=== PATIENT | male | born 1950 | race African-American/Black ===

== ENCOUNTER 2017-10-09 15:08 | Inpatient (IN) | payer MEDICARE, OTHER ==
[~2017-10-09] VITALS: Ht 188 cm; Wt 90.3 kg
[2017-10-09] MEDS ORDERED: ONDANSETRON 4 MG/2 ML VIAL IV PRN ×2 (16:00→18:15)
[2017-10-09] MEDS ORDERED: Z GUARD REMEDY PASTE 57 GM TUBE TOP PRN ×2 (16:00→18:15)
[2017-10-09] MEDS ORDERED: ACETAMINOPHEN 325 MG TABLET PO PRN ×2 (16:00→18:15)
[2017-10-09] MEDS ORDERED: MAGNESIUM HYDROXIDE 30 ML LIQUID UDC PO PRN ×2 (16:00→18:15)
[2017-10-09] MEDS ORDERED: ATOR10TA PO (16:02)
[2017-10-09] MEDS ORDERED: LEVE500T20 PO (16:08)
[2017-10-09] MEDS ORDERED: DABI150C PO (16:08)
[2017-10-09] MEDS ORDERED: CLON0.1T PO (16:08)
[2017-10-09] MEDS ORDERED: ENTA200T3 PO (16:08)
[2017-10-09] MEDS ORDERED: CARB1TAB24 PO (16:08)
[2017-10-09] MEDS ORDERED: PANT40TA2 PO (16:08)
--- NOTE | 2017-10-09 17:58 | NUR ---
Patient [facility] at 1440 [facility], 120/76, 97% on room air, 18 respirations, 59 pulse, 97.9 temperature, no complaints of [place] at this time, no signs of distress noted, call light placed in reach and bed locked and in lowest position, x 2 bed rails, bed alarm placed, alert and oriented to person/place/time, incontinent of bladder, brief changed at this time, no skin issues noted,MRSA swab done
[2017-10-09] MEDS ORDERED: IV NS 1000 ML 1,000 ML IV PRN (18:09)
[2017-10-09] MEDS ORDERED: ZOLPIDEM 5 MG TABLET PO PRN (18:15)
[2017-10-09] MEDS ORDERED: HYDROCODONE/APAP 5-325MG TABLET PO PRN (18:15)
[2017-10-09] MEDS ORDERED: CLONIDINE HCL 0.1 MG TABLET PO PRN (18:30)
[2017-10-09 19:33] VITALS: BP 144/83
[2017-10-09] MEDS: ENTACAPONE 200 MG TABLET PO SCH (20:39)
[2017-10-09] MEDS: DOCUSATE SODIUM 100 MG CAPSULE PO SCH (20:40)
[2017-10-09] MEDS: CARBIDOPA/LEVODOPA 25-250MG TABLET PO SCH (20:40)
[2017-10-09] MEDS: ATORVASTATIN 10 MG TABLET PO SCH (20:40)
[2017-10-09] MEDS ORDERED: DABIGATRAN ETEXILATE MESYLATE 150 MG CAPSULE PO SCH (21:00)
[2017-10-10] MEDS: CARBIDOPA/LEVODOPA 25-250MG TABLET PO SCH ×5 (05:26→20:27)
[2017-10-10] MEDS: ENTACAPONE 200 MG TABLET PO SCH ×5 (05:26→20:27)
[2017-10-10 05:27] VITALS: BP 149/74
--- NOTE | 2017-10-10 05:34 | NUR ---
pt slept well during the shift . No signs of distress . Pt had a void of 2 , and changed diaper . Pt has left leg severe weakness and a foot pump on left foot . VSS and pt has no c/o of pain . Pt in semi Fowlers position in bed . Bed in low position , wheels locked , side rails up , and bed alarm is on. Pt has call light near him at all times .
[2017-10-10 07:15] LABS: BASOPHILS % (AUTO) 0.4 % (0.0-2.0); EOSINOPHILS # (AUTO) 0.1 K/uL (0.0-0.7); EOSINOPHILS % (AUTO) 1.4 % (0.0-7.0); HEMATOCRIT 47.2 % (36.7-47.1); HEMOGLOBIN 15.8 g/dL (12.5-16.3); LYMPHOCYTES # (AUTO) 1.1 K/uL (20.0-40.0); LYMPHOCYTES % (AUTO) 18.1 % (20.5-51.5); MEAN CORPUSCULAR HGB CONC 33 g/dL (32.5-36.3); MEAN CORPUSCULAR VOLUME 95.8 fL (73.0-96.2); MONOCYTES # (AUTO) 0.3 K/uL (2.0-10.0); MONOCYTES % (AUTO) 5.8 % (0.0-11.0); NEUTROPHILS # (AUTO) 4.4 K/uL (1.8-8.9); NEUTROPHILS % (AUTO) 74.3 % (38.5-71.5); PLATELET COUNT (AUTO) 194 K/uL (152-348); RED BLOOD CELL COUNT(AUTO) 4.93 MIL/uL (4.06-5.63)
[2017-10-10 07:29] LABS: BILIRUBIN,DIRECT 0.1 mg/dL (0.0-0.2); BILIRUBIN,TOTAL 0.7 mg/dL (0.2-1.0); MAGNESIUM 2.1 mg/dL (1.8-2.4); PHOSPHOROUS 3.4 mg/dL (2.5-4.9); POTASSIUM 4.1 mmol/L (3.5-5.1); TOTAL PROTEIN, SERUM 7.9 g/dL (6.4-8.2)
[2017-10-10 07:38] LABS: THYROID STIMULATING HORMONE 1.605 mIU/mL (0.358-3.740)
--- NOTE | 2017-10-10 07:46 | NUR ---
Patient noted resting in bed at this time, IV place in right forearm/ 22 gauge, normal saline infusing at 75 mL/hr, no complaints of pain at this time, no signs of distress noted, call light in reach, bed locked and in lowest position, x [address], all needs met at this time
[2017-10-10 08:00] VITALS: BP 116/68
[2017-10-10] MEDS: PANTOPRAZOLE SODIUM 40 MG TABLET.DR PO SCH (08:50)
[2017-10-10] MEDS: LEVETIRACETAM 500 MG TABLET PO SCH ×2 (08:50→20:26)
[2017-10-10] MEDS ORDERED: DABIGATRAN ETEXILATE MESYLATE 150 MG CAPSULE PO SCH (09:00)
[2017-10-10] MEDS ORDERED: IV NS 1000 ML 1,000 ML IV PRN (12:47)
[2017-10-10 16:00] VITALS: BP 130/71
[2017-10-10] MEDS: RIVAROXABAN 10 MG TABLET PO SCH (17:27)
[2017-10-10 19:41] VITALS: BP 109/56
[2017-10-10] MEDS: ATORVASTATIN 10 MG TABLET PO SCH (20:27)
[2017-10-10] MEDS: DOCUSATE SODIUM 100 MG CAPSULE PO SCH (20:33)
--- NOTE | 2017-10-10 21:00 | NUR ---
Upon arrival , pt sitting up in Semi Torres's position in bed . A & O x 4 , no signs of distress , no c/o pain . Pt has a heplock in right forearm 22 gauge. Bed in low position , wheels locked , side rails up , bed alarm is on , and call light is nearby pt . Pt has SCDs on both legs .
[2017-10-11] MEDS: ENTACAPONE 200 MG TABLET PO SCH ×5 (05:33→20:30)
[2017-10-11] MEDS: CARBIDOPA/LEVODOPA 25-250MG TABLET PO SCH ×5 (05:34→20:30)
[2017-10-11 05:36] VITALS: BP 146/76
--- NOTE | 2017-10-11 05:59 | NUR ---
Pt slept well through the shift . Pt had 2 voids during shift . Changed pt and given bath . No signs of distress and no c/o pain .
[2017-10-11 08:00] VITALS: BP 133/74
--- NOTE | 2017-10-11 08:00 | NUR ---
Patient awake in bed, verbally responsive, not in any form of acute distress. He denies any pain or discomfort at this time. Reminded to use call light when in need of assistance with verbalized understanding. Call light placed within reach. Needs attended to. Maintained on fall precaution.
[2017-10-11] MEDS: LEVETIRACETAM 500 MG TABLET PO SCH ×2 (08:40→20:30)
[2017-10-11] MEDS: PANTOPRAZOLE SODIUM 40 MG TABLET.DR PO SCH (08:42)
--- NOTE | 2017-10-11 11:30 | NUR ---
Patient out of bed ambulating with walker with physical therapist, not in distress, no complain of pain or any discomfort.
--- NOTE | 2017-10-11 13:21 | NUR ---
INTERDISCIPLINARY TEAM CONFERENCE
[2017-10-11 16:00] VITALS: BP 146/85
[2017-10-11] MEDS: RIVAROXABAN 10 MG TABLET PO SCH (17:12)
[2017-10-11] MEDS: DOCUSATE SODIUM 100 MG CAPSULE PO SCH (20:30)
[2017-10-11] MEDS: ATORVASTATIN 10 MG TABLET PO SCH (20:30)
--- NOTE | 2017-10-11 20:44 | NUR ---
Received pt resting in bed. Assisted pt to the bathroom and changed linen. Unsteady gait, x1 assist, using walker. Encouraged to use call light. No acute distress noted. No c/o pain or discomfort. Safety measures maintained. Bed alarm on. Call light and personal belongings within reach. Will continue to monitor.
[2017-10-11 21:12] VITALS: BP 100/66
[2017-10-12 04:00] VITALS: BP 111/73
[2017-10-12] MEDS: ENTACAPONE 200 MG TABLET PO SCH ×5 (05:25→20:14)
[2017-10-12] MEDS: CARBIDOPA/LEVODOPA 25-250MG TABLET PO SCH ×5 (05:26→20:14)
--- NOTE | 2017-10-12 06:43 | NUR ---
Pt slept comfortably t/o the night. Morning meds given as ordered. VSS. All needs attended to promptly. Assisted to the bathroom as needed. Will endorse to day shift RN. Continue to monitor.
[2017-10-12 07:36] LABS: BASOPHILS % (AUTO) 0.7 % (0.0-2.0); EOSINOPHILS # (AUTO) 0.1 K/uL (0.0-0.7); EOSINOPHILS % (AUTO) 1.8 % (0.0-7.0); HEMATOCRIT 43.6 % (36.7-47.1); HEMOGLOBIN 14.7 g/dL (12.5-16.3); LYMPHOCYTES # (AUTO) 1.2 K/uL (20.0-40.0); LYMPHOCYTES % (AUTO) 21.4 % (20.5-51.5); MEAN CORPUSCULAR HEMOGLOBIN 32.4 uug (23.8-33.4); MEAN CORPUSCULAR HGB CONC 34 g/dL (32.5-36.3); MEAN CORPUSCULAR VOLUME 95.7 fL (73.0-96.2); MONOCYTES # (AUTO) 0.4 K/uL (2.0-10.0); MONOCYTES % (AUTO) 7.6 % (0.0-11.0); NEUTROPHILS # (AUTO) 3.9 K/uL (1.8-8.9); NEUTROPHILS % (AUTO) 68.5 % (38.5-71.5); PLATELET COUNT (AUTO) 185 K/uL (152-348); RED BLOOD CELL COUNT(AUTO) 4.56 MIL/uL (4.06-5.63); WHITE BLOOD COUNT (AUTO) 5.7 K/uL (3.6-10.2)
[2017-10-12 07:42] LABS: CREATININE 1.1 mg/dL (0.6-1.3); POTASSIUM 4.3 mmol/L (3.5-5.1)
[2017-10-12 08:00] VITALS: BP 138/82
[2017-10-12] MEDS: PANTOPRAZOLE SODIUM 40 MG TABLET.DR PO SCH (09:53)
[2017-10-12] MEDS: LEVETIRACETAM 500 MG TABLET PO SCH ×2 (09:53→20:14)
--- NOTE | 2017-10-12 11:18 | NUR ---
Received an order from KALEIGH Guan to change MOM to 30ml PO PRN daily and add Dulcolax 10mg PO PRN daily.
[2017-10-12 15:41] VITALS: BP 105/61
[2017-10-12] MEDS: RIVAROXABAN 10 MG TABLET PO SCH (17:44)
--- NOTE | 2017-10-12 17:50 | NUR ---
Patient remains alert, verbally responsive, not in any form of acute distress throughout the shift. He denies any pain or discomfort at this time. He participated with PT/OT and tolerated it.
--- NOTE | 2017-10-12 19:30 | NUR ---
PT ALERT AND ORIENTED IN BED. NO DISTRESS NOTED. COMPLIANT WITH NURSING CARE. DENIES PAIN AT THIS TIME. SAFETY MAINTAINED. CALL LIGHT WITHIN REACH. WILL CONTINUE TO MONITOR.
[2017-10-12 20:00] VITALS: BP 131/81
[2017-10-12] MEDS: ATORVASTATIN 10 MG TABLET PO SCH (20:14)
[2017-10-12] MEDS: DOCUSATE SODIUM 100 MG CAPSULE PO SCH (20:17)
[2017-10-13] MEDS: ENTACAPONE 200 MG TABLET PO SCH ×5 (05:00→20:53)
[2017-10-13] MEDS: CARBIDOPA/LEVODOPA 25-250MG TABLET PO SCH ×5 (05:00→20:53)
[2017-10-13 05:13] VITALS: BP 138/85
--- NOTE | 2017-10-13 06:34 | NUR ---
PT ALERT AND ORIENTED IN BED. NO DISTRESS NOTED. COMPLIANT WITH NURSING CARE AND MEDICATIONS. CLEAN AND DRY. SAFETY MAINTAINED. CALL LIGHT WITHIN REACH. BED ALARM ON.
--- NOTE | 2017-10-13 07:56 | NUR ---
Patient noted resting in bed with eyes closed, no facial cues of pain noted, no signs of distress, call light in reach, bed locked and in lowest position, x 2 bed rails
[2017-10-13] MEDS: PANTOPRAZOLE SODIUM 40 MG TABLET.DR PO SCH (08:55)
[2017-10-13] MEDS: LEVETIRACETAM 500 MG TABLET PO SCH ×2 (08:55→20:53)
[2017-10-13 12:14] VITALS: BP 127/74
[2017-10-13] MEDS: RIVAROXABAN 10 MG TABLET PO SCH (17:22)
[2017-10-13 20:00] VITALS: BP 121/72
--- NOTE | 2017-10-13 20:15 | NUR ---
Patient received at bed, AAO X3. Able to make needs known. No acute distress or SOB was noted. No complain of pain. All safety measures maintained. Bed is in low position and bed alarm and brake are on, side rails up x2. Call light and personal belonging within reach. Continue to monitor.
[2017-10-13] MEDS: ATORVASTATIN 10 MG TABLET PO SCH (20:53)
[2017-10-13] MEDS: DOCUSATE SODIUM 100 MG CAPSULE PO SCH (21:00)
--- NOTE | 2017-10-13 21:20 | NUR ---
Patient refused Colace 200 mg (2 capsules). Risks and benefits explained. Continue to monitor.
[2017-10-14] MEDS: ENTACAPONE 200 MG TABLET PO SCH ×5 (05:36→20:37)
[2017-10-14] MEDS: CARBIDOPA/LEVODOPA 25-250MG TABLET PO SCH ×5 (05:36→20:37)
[2017-10-14 06:58] VITALS: BP 122/76
[2017-10-14] MEDS: LEVETIRACETAM 500 MG TABLET PO SCH ×2 (08:28→20:37)
[2017-10-14] MEDS: PANTOPRAZOLE SODIUM 40 MG TABLET.DR PO SCH (08:29)
[2017-10-14] MEDS: RIVAROXABAN 10 MG TABLET PO SCH (17:38)
--- NOTE | 2017-10-14 18:23 | NUR ---
SBAR report received this morning, board updated. Pt assessed, no acute distress or SOB noted. VS WNL. Bed in locked and lowest position with side rails up x2. Pt able to make needs known. Repositioned for comfort. Compliant with routine medication administration and therapies as provided. All comfort and safety needs met promptly throughout this shift. No changes otherwise. Call light within reach. Will continue to monitor and endorse to oncoming shiftman.
--- NOTE | 2017-10-14 19:55 | NUR ---
Received pt in bed, awake and alert, laying down comfortably. No acute distress noted. Verbally responsive and able to make needs known. Diaper change x 1 per pt request. Good pericare rendered. Denies pain or discomfort at this time. All safety measures and fall precautions maintained. Call light and all personal belongings within reach. Will continue to monitor.
[2017-10-14 20:28] VITALS: BP 119/80
[2017-10-14] MEDS: DOCUSATE SODIUM 100 MG CAPSULE PO SCH (20:37)
[2017-10-14] MEDS: ATORVASTATIN 10 MG TABLET PO SCH (20:37)
[2017-10-15] MEDS: ENTACAPONE 200 MG TABLET PO SCH ×5 (06:13→20:35)
[2017-10-15] MEDS: CARBIDOPA/LEVODOPA 25-250MG TABLET PO SCH ×5 (06:13→20:35)
[2017-10-15 06:37] VITALS: BP 119/79
[2017-10-15 06:43] LABS: BASOPHILS % (AUTO) 0.7 % (0.0-2.0); EOSINOPHILS # (AUTO) 0.1 K/uL (0.0-0.7); EOSINOPHILS % (AUTO) 1.1 % (0.0-7.0); HEMATOCRIT 47.1 % (36.7-47.1); HEMOGLOBIN 15.8 g/dL (12.5-16.3); LYMPHOCYTES # (AUTO) 1.5 K/uL (20.0-40.0); LYMPHOCYTES % (AUTO) 23.2 % (20.5-51.5); MEAN CORPUSCULAR HEMOGLOBIN 32.1 uug (23.8-33.4); MEAN CORPUSCULAR HGB CONC 34 g/dL (32.5-36.3); MEAN CORPUSCULAR VOLUME 95.4 fL (73.0-96.2); MONOCYTES # (AUTO) 0.5 K/uL (2.0-10.0); MONOCYTES % (AUTO) 7.3 % (0.0-11.0); NEUTROPHILS # (AUTO) 4.4 K/uL (1.8-8.9); NEUTROPHILS % (AUTO) 67.7 % (38.5-71.5); PLATELET COUNT (AUTO) 180 K/uL (152-348); RED BLOOD CELL COUNT(AUTO) 4.94 MIL/uL (4.06-5.63); WHITE BLOOD COUNT (AUTO) 6.5 K/uL (3.6-10.2)
[2017-10-15 07:29] LABS: CREATININE 1.2 mg/dL (0.6-1.3); POTASSIUM 4.6 mmol/L (3.5-5.1)
[2017-10-15 07:50] LABS: THYROID STIMULATING HORMONE 0.767 mIU/mL (0.358-3.740)
[2017-10-15] MEDS: PANTOPRAZOLE SODIUM 40 MG TABLET.DR PO SCH (09:10)
[2017-10-15] MEDS: LEVETIRACETAM 500 MG TABLET PO SCH ×2 (09:10→20:35)
--- NOTE | 2017-10-15 09:46 | NUR ---
pt seen on rounding. pt vitals stable. no signs of acute distress. pt continues to swallow pills whole. no complaints of aspiration nor weakness. pt is min to stand by assist on transfers and walking. diaper changed. pt participates on therapy. will continue to monitor.
[2017-10-15 17:00] VITALS: BP 125/85
[2017-10-15] MEDS: RIVAROXABAN 10 MG TABLET PO SCH (17:05)
--- NOTE | 2017-10-15 18:47 | NUR ---
pt stable throughout the day. pt vitals stable. no signs of aspiration nor seizure during the day. fall precautions implemented. no new injuries noted. will endorse to road mender nurse,.
[2017-10-15 20:06] VITALS: BP 97/56
[2017-10-15] MEDS: DOCUSATE SODIUM 100 MG CAPSULE PO SCH (20:35)
[2017-10-15] MEDS: ATORVASTATIN 10 MG TABLET PO SCH (20:35)
[2017-10-16 04:33] VITALS: BP 138/84
[2017-10-16] MEDS: CARBIDOPA/LEVODOPA 25-250MG TABLET PO SCH ×5 (05:13→20:24)
[2017-10-16] MEDS: ENTACAPONE 200 MG TABLET PO SCH ×5 (05:13→20:24)
--- NOTE | 2017-10-16 06:55 | NUR ---
PT RESTING IN BED, NO C/O PAIN DURING SHIFT. NO SEIZURE EPISODES, AFEBRILE. ON ASPIRATION PRECAUTION. SAFETY MEASURES RENDERED.
[2017-10-16 08:00] VITALS: BP 131/89
[2017-10-16] MEDS: PANTOPRAZOLE SODIUM 40 MG TABLET.DR PO SCH (08:59)
[2017-10-16] MEDS: LEVETIRACETAM 500 MG TABLET PO SCH ×2 (09:00→20:24)
--- NOTE | 2017-10-16 09:50 | NUR ---
Patient alert, verbally responsive, not in any form of distress. Tolerated breakfast and took due medications without difficulty. He denies any pain or discomfort at this time. Up on the wheelchair with PT.
--- NOTE | 2017-10-16 11:42 | NUR ---
Patient out of bed ambulating with walker with physical therapist, not in distress, no complaints at this time.
[2017-10-16] MEDS: MAGNESIUM HYDROXIDE 30 ML LIQUID UDC PO PRN (12:50)
[2017-10-16 16:00] VITALS: BP 102/57
[2017-10-16] MEDS: RIVAROXABAN 10 MG TABLET PO SCH (17:32)
[2017-10-16 20:00] VITALS: BP 129/81
--- NOTE | 2017-10-16 20:10 | NUR ---
Patient received at bed, AAO X4. Able to make needs known. No acute distress or SOB was noted. No complain of pain. All safety measures maintained. Bed is in low position and bed alarm and brake are on, side rails up x2. Call light and personal belonging within reach. Continue to monitor.
[2017-10-16] MEDS: DOCUSATE SODIUM 100 MG CAPSULE PO SCH (20:23)
[2017-10-16] MEDS: ATORVASTATIN 10 MG TABLET PO SCH (20:23)
--- NOTE | 2017-10-16 21:05 | NUR ---
Patient refused Colace 200 mg (2 capsules). Risks and benefits explained. Continue to monitor.
[2017-10-17] MEDS: ENTACAPONE 200 MG TABLET PO SCH ×5 (05:14→20:30)
[2017-10-17] MEDS: CARBIDOPA/LEVODOPA 25-250MG TABLET PO SCH ×5 (05:14→20:30)
--- NOTE | 2017-10-17 06:33 | NUR ---
End of the shift note Patient checked and remained stable throughout the shift, he had a good sleep throughout the night. Vital signs was taken that was stable. Medication was given as ordered. All needs attended and anticipated. Safety measures was maintained. Bed alarm and brake on. call light and personal belongings within reach. Will endorse to the day shift nurse.
[2017-10-17 06:58] VITALS: BP 125/85
[2017-10-17 07:54] VITALS: BP 105/66
[2017-10-17] MEDS: LEVETIRACETAM 500 MG TABLET PO SCH ×2 (09:19→20:30)
[2017-10-17] MEDS: PANTOPRAZOLE SODIUM 40 MG TABLET.DR PO SCH (09:19)
[2017-10-17 16:08] VITALS: BP 133/86
[2017-10-17] MEDS: BISACODYL 5 MG TABLET.DR PO PRN (17:32)
[2017-10-17] MEDS: RIVAROXABAN 10 MG TABLET PO SCH (17:33)
--- NOTE | 2017-10-17 18:34 | NUR ---
pt stable throughout the day. pt participated in therapy. PT noticed that medication takes effect in the afternoon. pt diaper changed. no bm but pt voided. no redness seen on sacrum. pt ate with assist. no signs of aspiration. pt took medications. will endorse to overnight caregiver nurse.
[2017-10-17 20:00] VITALS: BP 137/85
--- NOTE | 2017-10-17 20:15 | NUR ---
Patient received at bed, AAO X4. Able to make needs known. No acute distress or SOB was noted. No complain of pain. Vital sign was stable. All safety measures maintained. Bed is in low position and bed alarm and brake are on, side rails up x2. Call light and personal belonging within reach. Continue to monitor.
[2017-10-17] MEDS: ATORVASTATIN 10 MG TABLET PO SCH (20:30)
[2017-10-17] MEDS: DOCUSATE SODIUM 100 MG CAPSULE PO SCH (20:31)
--- NOTE | 2017-10-17 21:00 | NUR ---
Patient refused Colace 200 mg (2 capsules). Risks and benefits explained. Continue to monitor.
[2017-10-18] MEDS: CARBIDOPA/LEVODOPA 25-250MG TABLET PO SCH ×5 (05:20→21:09)
[2017-10-18] MEDS: ENTACAPONE 200 MG TABLET PO SCH ×5 (05:20→21:09)
[2017-10-18 05:29] VITALS: BP 111/70
--- NOTE | 2017-10-18 05:54 | NUR ---
End of the shift note Patient checked and remained stable throughout the shift, he had a good sleep throughout the night. No complain of pain. Vital signs was taken that was stable. Medication was given as ordered. All needs attended and anticipated. Safety measures were maintained. Bed alarm and brake on. call light and personal belongings within reach. Will endorse to the day shift nurse accordingly.
[2017-10-18 06:43] VITALS: BP 138/71
[2017-10-18 09:05] VITALS: BP 101/61
[2017-10-18] MEDS: LEVETIRACETAM 500 MG TABLET PO SCH ×2 (09:39→21:09)
[2017-10-18] MEDS: PANTOPRAZOLE SODIUM 40 MG TABLET.DR PO SCH (09:39)
--- NOTE | 2017-10-18 13:39 | NUR ---
INTERDISCIPLINARY TEAM CONFERENCE
[2017-10-18] MEDS: BISACODYL 5 MG TABLET.DR PO PRN (13:55)
[2017-10-18 16:30] VITALS: BP 99/63
[2017-10-18] MEDS: RIVAROXABAN 10 MG TABLET PO SCH (17:14)
--- NOTE | 2017-10-18 19:00 | NUR ---
Received patient awake during initial rounds. Denies any pain/discomforts at this time. Safety measures and fall precaution maintained. Continue care as planned.
[2017-10-18 20:00] VITALS: BP 136/87
[2017-10-18] MEDS: ATORVASTATIN 10 MG TABLET PO SCH (21:09)
[2017-10-18] MEDS: DOCUSATE SODIUM 100 MG CAPSULE PO SCH (21:09)
[2017-10-18] MEDS ORDERED: QUETIAPINE FUMARATE 25 MG TABLET PO PRN (21:15)
[2017-10-19 05:37] VITALS: BP 134/85
[2017-10-19] MEDS: ENTACAPONE 200 MG TABLET PO SCH ×5 (06:27→20:19)
[2017-10-19] MEDS: CARBIDOPA/LEVODOPA 25-250MG TABLET PO SCH ×5 (06:27→20:19)
[2017-10-19] MEDS: MAGNESIUM HYDROXIDE 30 ML LIQUID UDC PO PRN (06:39)
--- NOTE | 2017-10-19 06:41 | NUR ---
Able to convince to take MOM. yesterday was not effective. Encouraged patient to increase oral fluid intake. Will monitor.
--- NOTE | 2017-10-19 07:13 | NUR ---
Shift End Report: Slept good. VS stable. No complaint presented. No fall/injury. No respiratory distress. Good skin/cliff care rendered after each incontinence. Dulcolax tabs ineffective, MOM given . Will endorse to oncoming shift. All needs attended and met. No significant event reported all night. Continue current rehab plan.
[2017-10-19 08:00] VITALS: BP 101/67
[2017-10-19] MEDS: PANTOPRAZOLE SODIUM 40 MG TABLET.DR PO SCH (09:16)
[2017-10-19] MEDS: LEVETIRACETAM 500 MG TABLET PO SCH ×2 (09:16→20:19)
[2017-10-19] MEDS ORDERED: BISACODYL 10 MG SUPP.RECT RC ONE (13:45)
[2017-10-19 14:30] VITALS: BP 143/85
[2017-10-19] MEDS: BISACODYL 5 MG TABLET.DR PO PRN (15:45)
[2017-10-19 16:30] VITALS: BP 143/85
--- NOTE | 2017-10-19 17:00 | NUR ---
Offered dulcolax suppository as ordered but patient refused and preferred dulcolax tabs PO. Encouraged fluids and offered prune juice.
[2017-10-19] MEDS: RIVAROXABAN 10 MG TABLET PO SCH (18:05)
--- NOTE | 2017-10-19 19:00 | NUR ---
Received patient awake , not in distress/pain. Asking sandwich at this time. Safety measures and fall precaution maintained. Continue care as planned.
[2017-10-19 20:18] VITALS: BP 105/64
[2017-10-19] MEDS: ATORVASTATIN 10 MG TABLET PO SCH (20:19)
[2017-10-19] MEDS: DOCUSATE SODIUM 100 MG CAPSULE PO SCH (20:20)
--- NOTE | 2017-10-19 21:00 | NUR ---
Magnesium Citrate given as ordered. Will monitor.
[2017-10-19] MEDS ORDERED: MAGNESIUM CITRATE 296 ML BOTTLE PO PRN (22:00)
[2017-10-20 05:31] VITALS: BP 131/85
--- NOTE | 2017-10-20 05:55 | NUR ---
Shift End Report: Vs stable. No complaint presented all night. Slept well. Magnesium citrate no effect, Will continue to monitor. Encouraged to increase oral fluid intake and ambulation as tolerated. NO significant changes/event reported. Continue rehab care as planned
[2017-10-20] MEDS: ENTACAPONE 200 MG TABLET PO SCH ×3 (06:58→14:22)
[2017-10-20] MEDS: CARBIDOPA/LEVODOPA 25-250MG TABLET PO SCH ×3 (06:58→14:22)
[2017-10-20] MEDS: PANTOPRAZOLE SODIUM 40 MG TABLET.DR PO SCH (08:38)
[2017-10-20] MEDS: LEVETIRACETAM 500 MG TABLET PO SCH (08:38)
[2017-10-20 08:47] VITALS: BP 123/76
--- NOTE | 2017-10-20 14:34 | NUR ---
DISCHARGED TO [facility]. PICKED UP BY [facility]. HARPREETS. NO SKIN ISSUES ON ADMISSION NONE ON DISCHARGE. D/C WITH SKIN INTACT
== END 2017-10-20 14:30 | DRG 57 ==
PROVIDERS: ADMIT Physical Medicine & Rehabilitation Pain Medicine; ATTEND Physical Medicine & Rehabilitation Pain Medicine
DX: G20 Parkinson's disease (principal); D68.59 Other primary thrombophilia; I50.32 Chronic diastolic (congestive) heart failure; G90.8 Other disorders of autonomic nervous system; E78.5 Hyperlipidemia, unspecified; F32.9 Major depressive disorder, single episode, unspecified; G40.909 Epilepsy, unspecified, not intractable, without status epilepticus; I11.0 Hypertensive heart disease with heart failure; K21.9 Gastro-esophageal reflux disease without esophagitis; F06.8 Other specified mental disorders due to known physiological condition; K59.00 Constipation, unspecified; R53.1 Weakness; R26.9 Unspecified abnormalities of gait and mobility; Z88.7 Allergy status to serum and vaccine; Z91.010 Allergy to peanuts; Z91.013 Allergy to seafood; I69.365 Other paralytic syndrome following cerebral infarction, bilateral
CPT/HCPCS: 36415; 83550; 83735; 84100; 84443; 85025; 92523; 92526; 97110; 97112; 97116; 97530; 97535